=== PATIENT | female | born 1940 | race African-American/Black ===

== ENCOUNTER 2017-10-10 09:07 | Day surgery (SDC) | payer MEDICARE, OTHER ==
[2017-10-10 10:23] LABS: CARBON DIOXIDE 30 mmol/L (21-31); CHLORIDE 101 mmol/L (97-110); GLUCOSE 92 mg/dl (70-220)
[2017-10-10 10:26] LABS: BLOOD UREA NITROGEN 81 mg/dl (7-20); CALCIUM 9.8 mg/dl (8.4-10.2); SODIUM 143 mmol/L (135-144)
[2017-10-10 10:54] LABS: CREATININE 14.66 mg/dl (0.44-1.00)
[2017-10-10] MEDS ORDERED: HEPARIN 1000 UNITS/NS (A-LINE) 1,000 ML (10:55)
[2017-10-10] MEDS ORDERED: IODIXANOL LOCM 50 ML BTL (10:55)
[2017-10-10] MEDS ORDERED: LIDOCAINE 1% (MDV) 20 ML INJ (10:55)
[2017-10-10 11:04] LABS: ANION GAP 18 (8-16)
== END 2017-10-10 12:06 | disposition home or self-care (01) ==
LOC: SDS 09:07
DX: T82.590A Other mechanical complication of surgically created arteriovenous fistula, initial encounter (principal); Y84.1 Kidney dialysis as the cause of abnormal reaction of the patient, or of later complication, without mention of misadventure at the time of the procedure; I12.0 Hypertensive chronic kidney disease with stage 5 chronic kidney disease or end stage renal disease; N18.6 End stage renal disease
CPT/HCPCS: 36902; 76937; 80048

== ENCOUNTER 2018-05-26 05:28 | Day surgery (SDC) | payer MEDICARE, OTHER ==
[2018-05-26] MEDS ORDERED: LIDOCAINE 1% (MPF) 30 ML INJ (06:31)
[2018-05-26] MEDS ORDERED: THROMBIN 5000 UNIT VIAL (06:31)
[2018-05-26] MEDS ORDERED: GELATIN SIZE 100 SPONGE (06:31)
[2018-05-26] MEDS ORDERED: HEPARIN 1000 UNITS/ML 10 ML INJ ×2 (06:31→09:55)
[2018-05-26 06:35] LABS: ADD MAN DIFF? NO; BASOPHIL # 0.1 10^3/ul (0.0-0.1); BASOPHILS % 1.2 % (0.0-2.0); EOSINOPHILS # 0.6 10^3/ul (0.0-0.5); EOSINOPHILS % 10.8 % (0.0-7.0); HEMATOCRIT 31.1 % (37.0-47.0); HEMOGLOBIN 10.1 g/dl (12.0-16.0); LYMPHOCYTES # 1.7 10^3/ul (0.8-2.9); LYMPHOCYTES % 30.2 % (15.0-51.0); MEAN CORPUSCULAR HEMOGLOBIN 32.3 pg (29.0-33.0); MEAN CORPUSCULAR HGB CONC 32.5 g/dl (32.0-37.0); MEAN CORPUSCULAR VOLUME 99.4 fl (82.0-101.0); MEAN PLATELET VOLUME 9.8 fl (7.4-10.4); MONOCYTE # 0.6 10^3/ul (0.3-0.9); MONOCYTES % 10.2 % (0.0-11.0); NEUTROPHIL # 2.7 10^3/ul (1.6-7.5); NEUTROPHILS % 47.3 % (39.0-77.0); PLATELET COUNT 148 10^3/UL (140-415); RED BLOOD COUNT 3.13 10^6/ul (4.20-5.40); RED CELL DISTRIBUTION WIDTH 13.2 % (11.5-14.5)
[2018-05-26 06:35] LABS: WHITE BLOOD COUNT 5.8 10^3/ul (4.8-10.8)
[2018-05-26 06:52] LABS: INR 0.97
[2018-05-26 06:53] LABS: PARTIAL THROMBOPLASTIN TIME 32.5 Sec (23.0-35.0)
[2018-05-26 07:08] LABS: ALANINE AMINOTRANSFERASE 28 IU/L (13-69); ALBUMIN 4.1 g/dl (3.3-4.9); ALBUMIN/GLOBULIN RATIO 1.41; ALKALINE PHOSPHATASE 127 IU/L (42-121); ANION GAP 13 (5-13); ASPARTATE AMINO TRANSFERASE 24 IU/L (15-46); BILIRUBIN,INDIRECT 0.1 mg/dl (0-1.1); BILIRUBIN,TOTAL 0.1 mg/dl (0.2-1.3); CALCIUM 9.6 mg/dl (8.4-10.2); CARBON DIOXIDE 31 mmol/L (21-31); CHLORIDE 99 mmol/L (97-110); GLUCOSE 95 mg/dl (70-220); SODIUM 143 mmol/L (135-144)
[2018-05-26 07:13] LABS: BLOOD UREA NITROGEN 27 mg/dl (7-20); CREATININE 7.35 mg/dl (0.44-1.00); POTASSIUM 5.1 mmol/L (3.5-5.1)
[2018-05-26] MEDS: HEPARIN 1000 UNITS/ML 10 ML INJ IRR (08:00)
[2018-05-26] MEDS: LIDOCAINE 1% (MDV) 20 ML INJ INJ (08:00)
[2018-05-26] MEDS ORDERED: ROPIVACAINE 0.5 % 30 ML VIAL (08:07)
[2018-05-26] MEDS ORDERED: LIDOCAINE 2% (SDV) 5 ML INJ (08:07)
[2018-05-26] MEDS ORDERED: CEFAZOLIN 1 GM INJ (08:33)
[2018-05-26] MEDS ORDERED: METOPROLOL 5 MG INJ (10:13)
[2018-05-26] MEDS ORDERED: FENTAnyl 50 MCG/ML VIAL IV (10:30)
[2018-05-26] MEDS ORDERED: LABETALOL HCL 20MG INJ IV (10:30)
[2018-05-26] MEDS ORDERED: ONDANSETRON 4 MG INJ IV (10:30)
[2018-05-26] MEDS ORDERED: hydrALAzine 20 MG INJ IV (10:30)
== END 2018-05-26 17:19 | disposition home or self-care (01) ==
LOC: SDS 05:28
DX: I12.0 Hypertensive chronic kidney disease with stage 5 chronic kidney disease or end stage renal disease (principal); N18.6 End stage renal disease; Z86.73 Personal history of transient ischemic attack (TIA), and cerebral infarction without residual deficits
CPT/HCPCS: 36821; 71045; 74018; 80053; 85025; 85610; 85730; 93005

== ENCOUNTER 2018-06-26 08:08 | Day surgery (SDC) | payer MEDICARE, OTHER ==
[2018-06-26 09:52] LABS: POTASSIUM 3.6 mmol/L (3.5-5.1)
[2018-06-26] MEDS ORDERED: FENTAnyl 50 MCG/ML VIAL (11:31)
[2018-06-26] MEDS: ACETAMINOPHEN 325 MG TAB PO (14:21)
== END 2018-06-26 14:21 | disposition home or self-care (01) ==
LOC: SDS 08:08
DX: T82.898A Other specified complication of vascular prosthetic devices, implants and grafts, initial encounter (principal); Y83.8 Other surgical procedures as the cause of abnormal reaction of the patient, or of later complication, without mention of misadventure at the time of the procedure; I12.0 Hypertensive chronic kidney disease with stage 5 chronic kidney disease or end stage renal disease; N18.6 End stage renal disease
CPT/HCPCS: 36902; 84132